=== PATIENT | male | born 1960 | race Hispanic/Latino ===

== ENCOUNTER 2020-12-30 07:35 | Day surgery (SDC) | payer OTHER ==
[2020-12-27 13:53] LABS: BASOPHILS % (AUTO) 0.6 % (0.0-5.0); EOSINOPHILS % (AUTO) 0.9 % (0.0-8.0); HEMATOCRIT 43.7 % (42-54); LYMPHOCYTES % (AUTO) 24.5 % (21.0-51.0); MEAN CORPUSCULAR HEMOGLOBIN 28.9 pg (27.0-33.0); MEAN CORPUSCULAR VOLUME 87.8 fL (79-99); MONOCYTES % (AUTO) 7.1 % (3.0-13.0); NEUTROPHILS % (AUTO) 66.4 % (40.0-77.0); PLATELET COUNT (AUTO) 235 K/uL (130-400); RED BLOOD CELL COUNT(AUTO) 4.98 MIL/uL (4.50-6.20); RED CELL DISTRIBUTION WIDTH 12.4 % (11.0-15.5); WHITE BLOOD COUNT (AUTO) 8.7 K/uL (4.8-10.8)
[2020-12-27 13:56] LABS: APPEARANCE,URINE Clear (CLEAR); BILIRUBIN,URINE Negative (NEGATIVE); COLOR,URINE Yellow (YELLOW); GLUCOSE, URINE (UA) >=1000 mg/dL (NEGATIVE); KETONES,URINE Negative (NEGATIVE); LEUKOCYTE ESTERASE ,URINE Negative (NEGATIVE); NITRATE,URINE Negative (NEGATIVE); OCCULT BLOOD,URINE Negative (NEGATIVE); PROTEIN,URINE Negative (NEGATIVE)
[2020-12-27 14:07] LABS: BACTERIA,URINE Rare /HPF (None Seen); RBC,URINE 0-1 /HPF (0-1); SQUAMOUS EPITHELIAL CELL,UR Rare /HPF (0-2); WBC,URINE 0-1 /HPF (0-1)
[2020-12-27 14:08] LABS: INR 0.98 (0.85-1.15); PROTHROMBIN TIME 10.7 SEC (9.6-11.6)
[2020-12-27 14:18] LABS: CREATININE 1.3 mg/dL (0.5-1.5); POTASSIUM 4.5 mmol/L (3.5-5.1)
[2020-12-30] VITALS (10 sets, daily range): BP systolic 83–132; BP diastolic 57–76
[~2020-12-30] VITALS: Ht 162.6 cm; Wt 85.5 kg
[~2020-12-30 07:35] MED LIST: ATOR10 PO; DAPA1TAB5 PO; ENAL2.5T16 PO; INSU100C6 SQ; INSU100V12 SQ; ISOS30TA92 PO; METO50TA18 PO
[2020-12-30] MEDS ORDERED: SODIUM CHLORIDE 0.9% 1000ML 1,000 ML IV ONE (08:51)
[2020-12-30] MEDS ORDERED: INSULIN HUMULIN R 100 UNIT/ML 3ML ONE (11:44)
[2020-12-30] MEDS ORDERED: INSULIN HUMULIN R 100 UNIT/ML 3ML SQ SCH (11:45)
[2020-12-30] MEDS ORDERED: IOHEXOL 350 MG/ML 100ML INFUS..BTL IV ONE (12:00)
[2020-12-30] MEDS ORDERED: FENTANYL CITRATE PF 50 MCG/1 ML 2ML VIAL ONE (12:00)
[2020-12-30] MEDS ORDERED: HEPARIN SODIUM 1000UNIT/ML 10ML VIAL ONE (12:00)
[2020-12-30] MEDS ORDERED: NITROGLYCERIN 2 MG/VIAL VIAL IV ONE (12:00)
[2020-12-30] MEDS ORDERED: MIDAZOLAM HCL 1 MG/ML 2ML VIAL ONE (12:00)
[2020-12-30] MEDS ORDERED: LIDOCAINE HCL 2% 20ML ONE (12:00)
[2020-12-30] MEDS ORDERED: NICARDIPINE HCL 25 MG/10 ML ML IV ONE (12:00)
[2020-12-30] MEDS ORDERED: SODIUM CHLORIDE 0.9% 1000ML 1,000 ML IV SCH (12:45)
== END 2020-12-30 17:35 | disposition home or self-care (01) ==
LOC: DAH 07:35
PROVIDERS: ATTEND Internal Medicine Cardiovascular Disease
DX: R94.39 Abnormal result of other cardiovascular function study (principal); I25.118 Atherosclerotic heart disease of native coronary artery with other forms of angina pectoris; I10 Essential (primary) hypertension; E78.5 Hyperlipidemia, unspecified; E11.9 Type 2 diabetes mellitus without complications; R00.0 Tachycardia, unspecified; R06.09 Other forms of dyspnea; Z95.5 Presence of coronary angioplasty implant and graft; Z79.82 Long term (current) use of aspirin; Z79.01 Long term (current) use of anticoagulants; Z79.899 Other long term (current) drug therapy
CPT/HCPCS: 36415; 71045; 80048; 80061; 81001; 82948; 85025; 85610; 85730; 93005; 93458; A4215; A4216; A4221; A4222; A4223 ×3; A4606; A4663; C1760; C1894 ×2; J1644; J1815; J2250; J3010; J3490 ×3; J7030; Q9965; Q9967; 99156; 99157

== ENCOUNTER 2023-04-16 06:42 | Day surgery (SDC) | payer OTHER ==
[2023-04-14 09:11] LABS: BASOPHILS # (AUTO) 0.03 K/uL (0.00-0.20); BASOPHILS % (AUTO) 0.5 % (0.0-5.0); EOSINOPHILS % (AUTO) 3.2 % (0.0-8.0); HEMATOCRIT 40.8 % (42-54); IMMATURE GRANULOCYTE ABSOLUTE 0.03 K/uL (0-1); LYMPHOCYTES # (AUTO) 1.8 K/uL (1.0-4.8); LYMPHOCYTES % (AUTO) 28.7 % (21.0-51.0); MEAN CORPUSCULAR HEMOGLOBIN 29.3 pg (27.0-33.0); MEAN CORPUSCULAR HGB CONC 32.8 g/dL (32.0-36.0); MEAN CORPUSCULAR VOLUME 89.3 fL (79-99); MONOCYTES # (AUTO) 0.5 K/uL (0.1-1.0); MONOCYTES % (AUTO) 7.6 % (3.0-13.0); NEUTROPHILS # (AUTO) 3.7 K/uL (1.8-7.7); NEUTROPHILS % (AUTO) 59.5 % (40.0-77.0); PLATELET COUNT (AUTO) 171 K/uL (130-400); RED BLOOD CELL COUNT(AUTO) 4.57 MIL/uL (4.50-6.20); RED CELL DISTRIBUTION WIDTH 12.4 % (11.0-15.5); WHITE BLOOD COUNT (AUTO) 6.2 K/uL (4.8-10.8)
[2023-04-14 09:13] VITALS: BP 134/65; PULSE 91; RESP 19
[2023-04-14 09:24] LABS: INR 0.93 (0.85-1.15); PROTHROMBIN TIME 10.7 SEC (9.6-11.6)
[2023-04-14 09:26] LABS: PARTIAL THROMBOPLASTIN TIME 30.4 SEC (26.3-35.5)
[2023-04-14 09:30] LABS: CREATININE 1.2 mg/dL (0.5-1.5); POTASSIUM 4.4 mmol/L (3.5-5.1)
[2023-04-14 10:16] LABS: B-TYPE NATRIURETIC PEPTIDE 10 pg/mL (0-100)
[~2023-04-16] VITALS: Ht 162.6 cm; Wt 87.6 kg
[~2023-04-16 06:42] MED LIST changes: +AEC81 PO; -ATOR10 PO; +ATOR40TA69 PO; +CLOP75TA32 PO; -DAPA1TAB5 PO; +EMPA25TA PO; +FURO20TA4 PO; -INSU100C6 SQ; +INSU100I15 SQ; -ISOS30TA92 PO; +ISOS60TA77 PO; +METF-910 PO; +METO-391 PO; -METO50TA18 PO; +NITR0.4T50 SL; +OMEP40CA21 PO; +SEMA1PEN3 SQ
[2023-04-16] MEDS ORDERED: 0.9%NACL 1000ML 1,000 ML IV ONE (07:28)
[2023-04-16 07:30] VITALS: BP 181/87; PULSE 87; RESP 16
== END 2023-04-16 12:45 | disposition home or self-care (01) ==
LOC: DAH 06:42
PROVIDERS: ATTEND Internal Medicine Cardiovascular Disease
DX: Z01.810 Encounter for preprocedural cardiovascular examination (principal); I08.1 Rheumatic disorders of both mitral and tricuspid valves; I25.10 Atherosclerotic heart disease of native coronary artery without angina pectoris; I10 Essential (primary) hypertension; E78.5 Hyperlipidemia, unspecified; E11.9 Type 2 diabetes mellitus without complications; R00.0 Tachycardia, unspecified; Z79.01 Long term (current) use of anticoagulants; Z79.4 Long term (current) use of insulin; Z79.899 Other long term (current) drug therapy; Z95.5 Presence of coronary angioplasty implant and graft; Z82.49 Family history of ischemic heart disease and other diseases of the circulatory system; Z53.8 Procedure and treatment not carried out for other reasons
CPT/HCPCS: 93306; 71045; 80048; 85025; 85610; 85730; 36415; 93005; 82948 ×2; 83880 ×2; J7030; A4215; A4222; A4221; A4663; A4216; A4606; A4223 ×3

== ENCOUNTER → 2023-04-24 | Outpatient (CLI) | payer OTHER ==
[~2023-04-24] MED LIST changes: +CILO100T3 PO; +SEMA0.258 SQ
== END | disposition home or self-care (01) ==
LOC: SHCH 14:13
PROVIDERS: ATTEND Internal Medicine Cardiovascular Disease
DX: I25.10 Atherosclerotic heart disease of native coronary artery without angina pectoris (principal); I51.7 Cardiomegaly
CPT/HCPCS: 93306

== ENCOUNTER 2023-04-30 05:45 | Day surgery (SDC) | payer OTHER ==
[2023-04-28 10:09] LABS: BASOPHILS # (AUTO) 0.03 K/uL (0.00-0.20); BASOPHILS % (AUTO) 0.4 % (0.0-5.0); EOSINOPHILS % (AUTO) 1.4 % (0.0-8.0); HEMATOCRIT 42.8 % (42-54); IMMATURE GRANULOCYTE ABSOLUTE 0.02 K/uL (0-1); LYMPHOCYTES # (AUTO) 1.8 K/uL (1.0-4.8); MEAN CORPUSCULAR HEMOGLOBIN 29.6 pg (27.0-33.0); MEAN CORPUSCULAR HGB CONC 33.4 g/dL (32.0-36.0); MEAN CORPUSCULAR VOLUME 88.6 fL (79-99); MONOCYTES # (AUTO) 0.4 K/uL (0.1-1.0); MONOCYTES % (AUTO) 5.3 % (3.0-13.0); NEUTROPHILS # (AUTO) 5.1 K/uL (1.8-7.7); NEUTROPHILS % (AUTO) 68.6 % (40.0-77.0); PLATELET COUNT (AUTO) 250 K/uL (130-400); RED BLOOD CELL COUNT(AUTO) 4.83 MIL/uL (4.50-6.20); RED CELL DISTRIBUTION WIDTH 12.5 % (11.0-15.5); WHITE BLOOD COUNT (AUTO) 7.4 K/uL (4.8-10.8)
[2023-04-28 10:20] LABS: CREATININE 1.3 mg/dL (0.5-1.5); INR < 0.93 (0.85-1.15); POTASSIUM 4.2 mmol/L (3.5-5.1); PROTHROMBIN TIME 10.7 SEC (9.6-11.6)
[2023-04-28 10:22] LABS: PARTIAL THROMBOPLASTIN TIME 30.2 SEC (26.3-35.5)
[2023-04-28 10:55] VITALS: BP 120/66; PULSE 92; RESP 18
[2023-04-28 11:13] LABS: B-TYPE NATRIURETIC PEPTIDE 13 pg/mL (0-100)
[2023-04-30] VITALS (10 sets, daily range): BP systolic 91–123; BP diastolic 55–68; PULSE 88–95; RESP 12–55
[~2023-04-30] VITALS: Ht 162.6 cm; Wt 84.0 kg
[2023-04-30] MEDS ORDERED: 0.9%NACL 1000ML 1,000 ML IV ONE (06:33)
[2023-04-30] MEDS ORDERED: LIDOCAINE HCL 400MG/20ML VIAL ONE (07:12)
[2023-04-30] MEDS ORDERED: FENTANYL CITRATE PF 50 MCG/1 ML 2ML VIAL ONE (07:12)
[2023-04-30] MEDS ORDERED: NITROGLYCERIN 50MG VIAL ONE (07:13)
[2023-04-30] MEDS ORDERED: MIDAZOLAM HCL 1 MG/ML 2ML VIAL ONE (07:13)
[2023-04-30] MEDS ORDERED: IOHEXOL 350 MG/ML 100ML INFUS..BTL IV ONE (07:13)
[2023-04-30] MEDS ORDERED: HEPARIN 10,000 UNIT/10ML (1,000 UNIT/ML) VIAL ONE (07:13)
[2023-04-30] MEDS ORDERED: 0.9%NACL 1000ML 1,000 ML IV SCH (09:00)
[2023-04-30] MEDS ORDERED: GLUCAGON 1MG KIT 1 MG ML IM PRN (09:00)
[2023-04-30] MEDS ORDERED: DEXTROSE 50%-WATER 50 ML DISP.SYRIN IV PRN (09:00)
== END 2023-04-30 12:35 | disposition home or self-care (01) ==
LOC: DAH 05:45
PROVIDERS: ATTEND Internal Medicine Cardiovascular Disease
DX: I25.119 Atherosclerotic heart disease of native coronary artery with unspecified angina pectoris (principal); I10 Essential (primary) hypertension; E78.5 Hyperlipidemia, unspecified; E11.9 Type 2 diabetes mellitus without complications; Z95.5 Presence of coronary angioplasty implant and graft; Z86.16 Personal history of COVID-19; Z79.4 Long term (current) use of insulin; Z79.01 Long term (current) use of anticoagulants; Z79.899 Other long term (current) drug therapy; Z79.82 Long term (current) use of aspirin
CPT/HCPCS: 80048; 83880; 85025; 85610; 85730; 36415; 93005; 93458; 82948 ×2; C1894 ×2; C1760; J3010; J3490 ×2; J7030; J2250; J1644; Q9967; A4215; A4222; A4221; A4663; A4216; A4606; Q9965 ×2; A4223 ×3; 96360; 96361; 99156; 99157

== ENCOUNTER 2025-02-12 11:19 | Emergency (ER) | payer OTHER ==
[~2025-02-12] VITALS: Ht 162.6 cm; Wt 81.6 kg
[~2025-02-12 11:19] MED LIST changes: -CILO100T3 PO; -CLOP75TA32 PO; -ENAL2.5T16 PO; -FURO20TA4 PO; +FURO40TA5 PO; -INSU100I15 SQ; -ISOS60TA77 PO; -METF-910 PO; -METO-391 PO; +METO25TA6 PO; -NITR0.4T50 SL; +POTA-200 PO; -SEMA0.258 SQ; -SEMA1PEN3 SQ
--- NOTE | 2025-02-12 11:26 | ERN ---
ED Note History of Present Illness Stated Complaint: BLEEDING WHILE USING RESTROOM Chief Complaint: Bloody Stool Time Seen by MD: 11:21 Dictation: PATIENT IS A 64-YEAR-OLD MALE COMING IN TODAY WITH COMPLAINTS OF LANCE RECTAL BLEEDING WITH BOWEL MOVEMENTS FOR THE LAST TWO MONTHS. HE STATES HE HAS GOTTEN PROGRESSIVELY WEAKER OVER THE LAST SEVERAL WEEKS. HE IS SCHEDULED BY [facility] FOR AN ENDOSCOPY AND COLONOSCOPY ON WEDNESDAY HOWEVER CAME TO THE EMERGENCY ROOM TODAY BECAUSE HE JUST DOES NOT FEEL GOOD. HE SAID THE STOOL IS NOT MELENA, THAT IS BRIGHT RED. SAID HE HAS SEEN HIS PRIMARY CARE DOCTOR ONLY SCHEDULED HIM WITH [facility]. Allergies: Coded Allergies: No Known Allergies (Unverified Allergy, Unknown, 12/27/20) Home Meds Reported Medications Insulin Detemir (Levemir) 100 Unit/Ml Vial, 20 UNIT SQ HS, VIAL 06/09/23 Potassium Chloride (Potassium Chloride) 10 Meq Tab.er.prt, 10 MEQ PO DAILY 06/09/23 Empagliflozin (Jardiance) 25 Mg Tablet, 25 MG PO DAILY, TAB 06/09/23 Furosemide (Furosemide) 40 Mg Tablet, 40 MG PO DAILYDINNER, TAB 06/09/23 Metoprolol Tartrate (Metoprolol Tartrate) 25 Mg Tablet, 25 MG PO BID, TAB 06/09/23 Omeprazole (Omeprazole) 40 Mg Capsule.dr, 40 MG PO DAILY, CAP 04/14/23 Aspirin (ASPIRIN 81 MG ECTAB) 81 Mg Ectab, 81 MG PO DAILY, TAB.EC 04/14/23 Atorvastatin Calcium (LIPITOR) 40 Mg Tablet, 40 MG PO AM, TAB 04/14/23 Past Medical History Past Medical History: CAD, Diabetes-Type II Surgical History: CABG Social History: Negative, Lives with family RN Note Reviewed/Agreed w/PFSH: Yes Review of System Dictation CONSTITUTIONAL: NEGATIVE EXCEPT FOR HPI GB W HEAD/FACE: NEGATIVE EXCEPT FOR HPI EENT: NEGATIVE EXCEPT FOR HPI RESPIRATORY: NEGATIVE EXCEPT FOR HPI GASTROINTESTINAL/ABDOMINAL: NEGATIVE EXCEPT FOR HPI HEMATOCHEZIA TWO MONTHS GENITOURINARY: NEGATIVE EXCEPT FOR HPI MUSCULOSKELETAL: NEGATIVE EXCEPT FOR HPI INTEGUMENTARY: NEGATIVE EXCEPT FOR HPI NEUROLOGICAL/PSYCH: NEGATIVE EXCEPT FOR HPI HEMATOLOGIC/LYMPHATIC: NEGATIVE EXCEPT FOR HPI ALL SYSTEMS NEGATIVE, EXCEPT NOTED ABOVE. 13 POINT REVIEW OF SYSTEMS ASSESSED AND ALL NEGATIVE EXCEPT FOR ABOVE. Initial Vital Sign VS Vital Signs Date Time Temp Pulse Resp B/P (MAP) Pulse Ox O2 Delivery O2 Flow Rate FiO2 02/12/25 11:23 97.9 87 16 168/85 99 Room Air 0 02/12/25 11:34 21 Physical Exam Dictation VITAL SIGNS REVIEWED GENERAL APPEARANCE: ALERT, ORIENTED X 3, NO ACUTE DISTRESS, WELL DEVELOPED, NOURISHED. HEAD AND FACE: NON-TRAUMATIC. EYES: PERRL, PINK CONJUNCTIVAS, EYELID NO TRAUMA, ANTERIOR CHAMBER WITH ARCUS SENILIS. EARS: PINNAS INTACT AND NO SIGNS OF TRAUMA OR ERYTHEMA EAR CANALS CLEAR AND NO DISCHARGE TM NO ERYTHEMA NOSE: NO DISCHARGE, NO BLEEDING. OROPHARYNX: MOUTH NORMAL, TONGUE PINK, PHARYNX CLEAR,NO ERYTHEMA, TONSILS NO EXUDATES, NO ABSCESSES NOTED, MUCOUS MEMBRANE MOIST NECK: SUPPLE, NON-TENDER, NO THYROMEGALY, NO MASSES, NO JVD, NO BRUITS BREAST:DEFERRED CHEST:NO TENDERNESS, NO CREPITUS, NO PARADOXICAL MOVEMENT, NO RETRACTIONS LUNGS:CLEAR, WELL-VENTILATED, SYMMETRIC, NO RALES, NO WHEEZING, NO RHONCHI, NO STRIDOR, GOOD BREATH SOUNDS BILATERALLY HEART: REGULAR RATE, REGULAR RHYTHM, NO MURMUR, NO GALLOPS VASCULAR: NO PERIPHERAL EDEMA, ABDOMEN: SOFT, POSITIVE BOWEL SOUNDS, NONDISTENDED, NO GUARDING, NONTENDER, NO REBOUND, NO MASSES NO HEPATOMEGALY, NO SPLENOMEGALY, NO GONG'S SIGN, NO HERNIAS. RECTAL: DEFERRED REFUSED RECTAL EXAM SAID HE HAD ONE YESTERDAY AND IT WAS NEGATIVE BY HIS DOCTOR GENITAL: DEFERRED NEUROLOGICAL: NORMAL SPEECH, MOTOR FUNCTION INTACT, SENSORY FUNCTION INTACT MUSCULOSKELETAL: NECK NONTENDER, FULL RANGE OF MOTION, BACK NONTENDER, FULL RANGE OF MOTION, EXTREMITIES: NONTENDER, FULL RANGE OF MOTION SKIN: COLOR PINK, DRY, NO TURGOR, NO RASH, NO LACERATIONS, NO ABRASIONS, NO CONTUSIONS. LYMPHATIC: DEFERRED Results (Laboratory/Radiology) Laboratory/Radiology Laboratory Tests Test 02/12/25 11:38 02/12/25 13:08 White Blood Count 7.6 K/uL (4.8-10.8) Red Blood Count 4.92 MIL/uL (4.50-6.20) Hemoglobin 14.6 g/dL (14.0-18.0) Hematocrit 42.7 % (42-54) Mean Corpuscular Volume 86.8 fL (79-99) Mean Corpuscular Hemoglobin 29.7 pg (27.0-33.0) Mean Corpuscular Hemoglobin Concent 34.2 g/dL (32.0-36.0) Red Cell Distribution Width 13.5 % (11.0-15.5) Platelet Count 200 K/uL (130-400) Mean Platelet Volume 12.4 fL (7.5-10.5) H Immature Granulocyte % (Auto) 0.3 % (0-1) Neutrophils (%) (Auto) 76.6 % (40.0-77.0) Lymphocytes (%) (Auto) 15.2 % (21.0-51.0) L Monocytes (%) (Auto) 6.3 % (3.0-13.0) Eosinophils (%) (Auto) 1.2 % (0.0-8.0) Basophils (%) (Auto) 0.4 % (0.0-5.0) Neutrophils # (Auto) 5.8 K/uL (1.8-7.7) Lymphocytes # (Auto) 1.2 K/uL (1.0-4.8) Monocytes # (Auto) 0.5 K/uL (0.1-1.0) Eosinophils # (Auto) 0.09 K/uL (0.00-0.70) Basophils # (Auto) 0.03 K/uL (0.00-0.20) Absolute Immature Granulocyte (auto 0.02 K/uL (0-1) Nucleated Red Blood Cells 0.0 % (0.0-0.19) Sodium Level 138 mmol/L (136-145) Potassium Level 3.9 mmol/L (3.5-5.1) Chloride Level 101 mmol/L (101-111) Carbon Dioxide Level 28 mmol/L (21-32) Blood Urea Nitrogen 25 mg/dL (7-18) H Creatinine 1.1 mg/dL (0.5-1.3) Glomerular Filtration Rate Calc 74 mL/min (>90) Random Glucose 260 mg/dL (70-105) H Total Calcium 9.2 mg/dL (8.5-10.1) Troponin I High Sensitivity 7 ng/L (4-75) Lipase 25 U/L (16-77) Urine Color LIGHT-YELLOW (YELLOW) Urine Appearance CLEAR (CLEAR) Urine pH 5.0 (5.0-8.0) Urine Specific [place] 1.029 (1.001-1.031) Urine Protein NEGATIVE mg/dL (NEGATIVE) Urine Glucose (UA) >=1000 mg/dL (NEGATIVE) H Urine Ketones NEGATIVE mg/dL (NEGATIVE) Urine Occult Blood +- (TRACE) (NEGATIVE) H Urine Nitrate NEGATIVE (NEGATIVE) Urine Bilirubin NEGATIVE mg/dL (NEGATIVE) Urine Urobilinogen 0.2 mg/dL (0.2-1.0) Urine Leukocyte Esterase NEGATIVE Jorge L/uL Labs Reviewed?: Yes ED Course ED Course Orders Procedure Category Date Status Time Cbc With Differential LAB 02/12/25 Complete 11:24 Troponin I High LAB 02/12/25 Complete Sensitivity 11:24 Urinalysis Profile LAB 02/12/25 In Process 11:24 Occult Blood Stool LAB 02/12/25 Logged Single Only 11:24 12 Lead Ekg Tracing- EKG 02/12/25 Complete Technical 11:24 Pantoprazole 40mg Inj PHA 02/12/25 Complete (Protonix 40mg Inj 11:30 Lipase LAB 02/12/25 Complete 11:24 Basic Metabolic Panel LAB 02/12/25 Complete 11:24 Current Medications Medications (Trade) Dose Ordered Sig/Lyndsay Route PRN Reason Start Time Stop Time Status Last Admin Dose Admin Pantoprazole Sodium (PROTonix 40MG INJ) 40 mg ONCE ONCE IVP 02/12/25 11:30 02/12/25 11:31 DC 02/12/25 12:44 Vital Signs Date Time Temp Pulse Resp B/P (MAP) Pulse Ox O2 Delivery O2 Flow Rate FiO2 02/12/25 11:34 98.1 88 19 179/78 97 Room Air* 0 21 02/12/25 11:23 97.9 87 16 168/85 99 Room Air 0 Medical Decision Making [facility] 1415/MEDICAL DECISION-MAKING BASIC LABS FOR A POSSIBLE LOWER GI BLEED. LABS ARE NORMAL LIST FOR CBC HEMODYNAMICALLY STABLE PATIENT WAS TOLD TO SEE HIS PRIMARY CARE DOCTOR ON WEDNESDAY FOR THE ENDOSCOPY AND COLONOSCOPY DX & DISP Disposition: Discharge Departure Impression: Primary Impression: Uncontrolled diabetes mellitus Additional Impression: Mild dehydration Condition: Stable Scripts Dicyclomine HCl (Bentyl) 20 Mg Tab 20 MG PO Q6D for ABDOMINAL CRAMPING, #30 TAB Prov: ALBERTO SOLIS HANDKERCHIEF MAKER 6/16/25 Additional Instructions: FOLLOW-UP WITH PRIMARY CARE PROVIDER IN 1 TO 2 DAYS. TAKE MEDICATIONS DIR ECTED HERE IN THE EMERGENCY ROOM. OKAY TO CONTINUE HOME MEDICATIONS UNLESS OTHERWISE DISCUSSED DURING YOUR VISIT IN THE EMERGENCY ROOM TODAY. RETURN TO YOUR NEAREST EMERGENCY ROOM IF SYMPTOMS WORSEN OR IF THERE IS NO IMPROVEMENT. CALL 911 IF YOU NEED IMMEDIATE ASSISTANCE. TAKE TYLENOL OR MOTRIN [id number] NEEDED AND IF NO CONTRAINDICATIONS ARE PRESENT. INCREASE ORAL HYDRATION. A WOUND CULTURE OR URINE CULTURE WAS ORDERED HERE IN THE EMERGENCY ROOM DEPARTMENT PLEASE FOLLOW-UP WITH PRIMARY CARE PROVIDER AND ADVISE THEM TO GET REPEAT PORTS FROM OUR FACILITY. IF YOU HAD ANY MELANIE WRAP/SPLINTS THAT WERE APPLIED HERE, PLEASE DO NOT REMOVE THEM UNTIL YOU SEE YOUR PRIMARY CARE OR SPECIALTY. CONTINUE ALL MEDICATIONS AND TREATMENTS FROM YOUR DOCTOR KEEP YOUR APPOINTMENT WITH THE AREA COUNSELOR ON WEDNESDAY FOR YOUR ENDOSCOPY AND COLONOSCOPY. Referrals: ODALIS ELENA MD (PCP) Time of Disposition: 14:15 I have reviewed the case, and I agree with, Diagnosis and Plan ALBERTO SOLIS NP Feb 12, 2025 11:26
[2025-02-12 11:45] LABS: BASOPHILS # (AUTO) 0.03 K/uL (0.00-0.20); BASOPHILS % (AUTO) 0.4 % (0.0-5.0); EOSINOPHILS # (AUTO) 0.09 K/uL (0.00-0.70); EOSINOPHILS % (AUTO) 1.2 % (0.0-8.0); HEMATOCRIT 42.7 % (42-54); IMMATURE GRANULOCYTE ABSOLUTE 0.02 K/uL (0-1); LYMPHOCYTES # (AUTO) 1.2 K/uL (1.0-4.8); LYMPHOCYTES % (AUTO) 15.2 % (21.0-51.0); MEAN CORPUSCULAR HEMOGLOBIN 29.7 pg (27.0-33.0); MEAN CORPUSCULAR HGB CONC 34.2 g/dL (32.0-36.0); MEAN CORPUSCULAR VOLUME 86.8 fL (79-99); MONOCYTES # (AUTO) 0.5 K/uL (0.1-1.0); MONOCYTES % (AUTO) 6.3 % (3.0-13.0); NEUTROPHILS # (AUTO) 5.8 K/uL (1.8-7.7); NEUTROPHILS % (AUTO) 76.6 % (40.0-77.0); PLATELET COUNT (AUTO) 200 K/uL (130-400); RED BLOOD CELL COUNT(AUTO) 4.92 MIL/uL (4.50-6.20); RED CELL DISTRIBUTION WIDTH 13.5 % (11.0-15.5); WHITE BLOOD COUNT (AUTO) 7.6 K/uL (4.8-10.8)
[2025-02-12 11:53] LABS: CREATININE 1.1 mg/dL (0.5-1.3); POTASSIUM 3.9 mmol/L (3.5-5.1)
--- NOTE | 2025-02-12 12:28 | EKG ---
[facility] Test Date: 2025-02-12 Test Time: 12:25:41 Pat Name: MARYAN FORREST Department: ED Room: Gender: M Pick Up And Delivery Driver: [id number] : 1960 Requested By: ALBERTO SOLIS Order Number: [id number] Reading MD: Antione Crow Measurements Intervals Hanna Rate: 87 P: 62 AR: 121 QRS: 10 QRSD: 94 T: 165 QT: 367 QTc: 440 Interpretive Statements Sinus rhythm Low voltage, extremity leads Repol abnrm suggests ischemia, lateral leads Compared to ECG 06/08/2023 21:07:54 Atrial premature complex(es) now present Low QRS voltage now present Early repolarization now present Possible ischemia still present Electronically Signed On 02-14-2025 10:15:24 CDT by Antione Crow Please click the below link to view image of tracing.
[2025-02-12] MEDS: PANTOPrazole 40 MG/VIAL IVP ONE (12:44)
[2025-02-12 13:27] LABS: APPEARANCE,URINE CLEAR (CLEAR); BILIRUBIN,URINE NEGATIVE (NEGATIVE); COLOR,URINE LIGHT-YELLOW (YELLOW); GLUCOSE, URINE (UA) >=1000 mg/dL (NEGATIVE); KETONES,URINE NEGATIVE (NEGATIVE); LEUKOCYTE ESTERASE ,URINE NEGATIVE Leu/uL (NEGATIVE); NITRATE,URINE NEGATIVE (NEGATIVE); PROTEIN,URINE NEGATIVE (NEGATIVE); UROBILINOGEN,URINE 0.2 mg/dL (0.2-1.0)
[2025-02-12 14:12] LABS: ADD UA MICROSCOPIC YES
[2025-02-12] MEDS ORDERED: DICY20TA2 PO (14:16)
[2025-02-12 14:48] LABS: RBC,URINE 0-1 /HPF (0-1); SQUAMOUS EPITHELIAL CELL,UR RARE /HPF (0-2)
[2025-02-12 15:03] VITALS: BP 152/76; PULSE 82; RESP 20; TEMP 98; O2SAT 98
== END 2025-02-12 15:06 | disposition home or self-care (01) ==
LOC: EDH 11:19
DX: E11.65 Type 2 diabetes mellitus with hyperglycemia (principal); E86.0 Dehydration; I25.10 Atherosclerotic heart disease of native coronary artery without angina pectoris; Z79.82 Long term (current) use of aspirin; Z79.84 Long term (current) use of oral hypoglycemic drugs; Z79.899 Other long term (current) drug therapy; Z95.1 Presence of aortocoronary bypass graft
CPT/HCPCS: 99284; 96374; 84484; 80048; 83690; 85025; 81001; 36415; 93005; J2470

== ENCOUNTER → 2025-03-15 | Outpatient (CLI) | payer OTHER ==
[~2025-03-15] MED LIST changes: +DICY20TA2 PO
[2025-03-15 11:10] LABS: IMMATURE GRANULOCYTE ABSOLUTE 0.04 K/uL (0-1); NUCLEATED RED BLOOD CELLS 0.0 % (0.0-0.19); PLATELET COUNT (AUTO) 284 K/uL (130-400); RED BLOOD CELL COUNT(AUTO) 5.25 MIL/uL (4.50-6.20); RED CELL DISTRIBUTION WIDTH 12.9 % (11.0-15.5); WHITE BLOOD COUNT (AUTO) 9.3 K/uL (4.8-10.8)
[2025-03-15 11:23] LABS: ASPARTATE AMINOTRANSFERASE 15.0 U/L (10-37); CREATININE 1.0 mg/dL (0.5-1.3); GLOMERULAR FILTR. RATE CALC 83.0 mL/min (>90); GLUCOSE,RANDOM 181.0 mg/dL (70-105); SODIUM SERUM 138.0 mmol/L (136-145); TOTAL PROTEIN, SERUM 8.6 g/dL (6.0-8.3); UREA NITROGEN, BLOOD 20.0 mg/dL (7-18)
[2025-03-15 11:28] LABS: INR 1.03 (0.85-1.15)
== END | disposition home or self-care (01) ==
LOC: LAB 10:21
PROVIDERS: ATTEND Internal Medicine Gastroenterology
DX: R93.2 Abnormal findings on diagnostic imaging of liver and biliary tract (principal); Z86.2 Personal history of diseases of the blood and blood-forming organs and certain disorders involving the immune mechanism
CPT/HCPCS: 36415; 80053; 82105; 85025; 85610

== ENCOUNTER → 2025-03-20 | Outpatient (CLI) | payer OTHER ==
--- NOTE | 2025-03-22 08:58 | HMCIMG ---
Gastric Emptying Scan. EXAM: Nuclear Medicine Gastric Emptying Scan. INDICATION: Abdominal pain. REFERENCE EXAMINATION: None TECHNIQUE: 2.1 mCi of Tc99m sulfur colloid with egg whites, 2 slices of bread/jam, 4 ounces of water. FINDINGS: Transit of radiopharmaceutical is seen from the stomach into the small bowel. 27% gastric emptying achieved during the period of study. IMPRESSION: Scintigraphic findings suggest gastroparesis. /[place]
== END | disposition home or self-care (01) ==
LOC: RAH 07:17
PROVIDERS: ATTEND Internal Medicine Gastroenterology
DX: R11.0 Nausea (principal); R10.10 Upper abdominal pain, unspecified
CPT/HCPCS: 78264; A9541

== ENCOUNTER → 2025-03-23 | Outpatient (CLI) | payer OTHER ==
[~2025-03-23] MED LIST changes: +IOHEXOL 350 MG/ML 100ML INFUS..BTL IV ONE
--- NOTE | 2025-03-23 13:25 | HMCIMG ---
Comparison CHEST ABDOMEN AND PELVIS CT SCAN HISTORY: MALIGNANT NEOPLASM OF RECTOSIGMOID JUNCTION. COMPARISON: TECHNIQUE: Sequential axial sections from the thoracic inlet through the chest, abdomen and pelvis with and without IV contrast. Sagittal and coronal reconstructions were formatted.. CT was performed with one or more of the following dose reduction techniques: Automated exposure control, adjustment of the mA and/or kV according to the patient's size, or use of the iterative reconstruction technique. CONTRAST: 100 cc Omnipaque 350. And the patient was also given oral contrast. FINDINGS: Chest: Atherosclerotic calcifications of the aorta and coronary arteries are seen. Aorta appears intact without evidence of dissection or aneurysm. Main pulmonary artery and visualized branches appear preserved. Heart size is normal. No significant pericardial effusion. Status post median sternotomy.. . No evidence of pleural effusion or pneumothorax. Abdomen: There is small amount of some fatty ascites.. Liver is otherwise negative. Gallbladder, bile ducts, pancreas, spleen, adrenal glands have a normal appearance. Kidneys show normal parenchymal enhancement and excretion bilaterally. The aorta is heavily calcified and may contain a chronic focal dissection in the infrarenal portion. here is no evidence of aneurysm. No evidence of acute aortic injury. No adenopathy. No bowel obstruction,. The small and large bowels are well opacified with oral contrast. . Colon diverticula mostly in sigmoid colon without inflammatory changes. In the pelvis, no adenopathy or fluid collections. Prominent prostate with calcifications. Bladder is partially contrast filled and grossly unremarkable. Ischiorectal fossa are clear. Inguinal regions are negative. IMPRESSION: 1. Status post median sternotomy. Coronary calcification with coronary disease.. 2. Small amount of subhepatic ascites.. 3. Diverticula with no evidence of diverticulitis. 4. No acute process seen in the CT of the chest abdomen and pelvis.
== END | disposition home or self-care (01) ==
LOC: RAH 08:20
PROVIDERS: ATTEND Internal Medicine Gastroenterology
DX: C19 Malignant neoplasm of rectosigmoid junction (principal); K57.30 Diverticulosis of large intestine without perforation or abscess without bleeding; N42.89 Other specified disorders of prostate; R18.8 Other ascites; I70.0 Atherosclerosis of aorta; I25.10 Atherosclerotic heart disease of native coronary artery without angina pectoris; Z98.890 Other specified postprocedural states
CPT/HCPCS: 71270; 82378; 36415; 74178; Q9967

== ENCOUNTER → 2025-03-30 | Outpatient (CLI) | payer OTHER ==
[~2025-03-30] MED LIST changes: +GADOTERATE MEGLUMINE 10 MMOL/20 ML VIAL IV ONE; -IOHEXOL 350 MG/ML 100ML INFUS..BTL IV ONE
--- NOTE | 2025-04-01 06:25 | HMCIMG ---
EXAM: MR Pelvis with and without Intravenous Contrast. CLINICAL HISTORY: Patient presents with rectosigmoid malignancy. TECHNIQUE: Multisequence, multiplanar magnetic resonance images of the pelvis with and without intravenous contrast. CONTRAST: Intravenous contrast administered. COMPARISON: 03/20/2025. FINDINGS: BOWEL: T1-weighted isointense and T2-weighted hyperintense circumferential symmetric mural thickening of the rectosigmoid colon, measuring up to 1.3 cm in maximum thickness, with associated luminal narrowing and adjacent fat stranding. Circumferential thickening of the sigmoid colon and rectum, likely related to underdistention. Minimal free fluid in the pelvis. BLADDER: Suboptimally distended urinary bladder with increased wall thickening. REPRODUCTIVE: Prostate mildly enlarged in caliber. LYMPH NODES: No lymphadenopathy. BONES: No acute fracture or aggressive-appearing osseous lesion. IMPRESSION: Stable circumferential mural thickening with luminal narrowing of the rectosigmoid colon and adjacent fat stranding, consistent with known rectosigmoid malignancy. Stable circumferential thickening of the sigmoid colon and rectum, likely related to underdistention; however, reactive or neoplastic etiology cannot be entirely excluded in current imaging. Correlation with endoscopy and/or follow-up imaging may be considered if clinically indicated. Mild Prostatomegaly. Suboptimally distended urinary bladder with increased wall thickening, may represent cystitis. Minimal pelvic free fluid. Recommend further evaluation with whole-body PET-CT for staging and treatment planning. /[place]
== END | disposition home or self-care (01) ==
LOC: RAH 10:26
PROVIDERS: ATTEND Internal Medicine Gastroenterology
DX: N40.0 Benign prostatic hyperplasia without lower urinary tract symptoms (principal); K56.699 Other intestinal obstruction unspecified as to partial versus complete obstruction; K63.89 Other specified diseases of intestine; N32.89 Other specified disorders of bladder
CPT/HCPCS: 72197; A9575